=== PATIENT | female | born 1980 | race Caucasian/White ===

== ENCOUNTER 2018-10-21 06:30 | Inpatient (IN) | payer OTHER ==
[2018-10-21] MEDS ORDERED: NS / Oxytocin 40 units/1000ml 1,000 ML IV PRN (14:02)
[2018-10-21] MEDS ORDERED: Promethazine HCl 25 MG/ML VIAL IM PRN ×2 (14:02→21:17)
[2018-10-21] MEDS ORDERED: HYDROcodone/Acetaminophen 5/325 mg Tablet PO PRN ×2 (14:02)
[2018-10-21] MEDS ORDERED: Butorphanol Tartrate 1 MG/ML VIAL SLOW IVP PRN (14:02)
[2018-10-21] MEDS ORDERED: Ibuprofen 800 MG TAB PO PRN (14:02)
[2018-10-21] MEDS ORDERED: Lidocaine 1% (PF) 30 ML VIAL SC PRN (14:02)
[2018-10-21] MEDS ORDERED: Docusate 100 MG CAP PO PRN (14:02)
[2018-10-21] MEDS ORDERED: NS w/ Oxytocin 10 units 500 ML IV SCH (14:15)
[2018-10-21 15:05] VITALS: BMI 51.3
[2018-10-21 16:21] LABS: Hemoglobin 11.1 g/dL (12.0-16.0); Mean Corpuscular HGB CONC 34.2 g/dL (32.0-36.0); Mean Corpuscular Hemoglobin 27.7 pg (27.0-31.0); Mean Corpuscular Volume 80.9 fL (78.0-98.0); Mean Platelet Volume 8.2 fL (7.4-10.4); Platelet Count 225 thou/uL (130-400); RBC Distribution Width 14.6 % (11.5-14.5); Red Blood Cell (RBC) Count 4.01 mill/uL (4.20-5.40); White Blood Cell (WBC) Count 9.4 thou/uL (4.8-10.8)
[2018-10-21 17:02] LABS: HBSAg Index 0.23 S/CO (0-0.99); Hep B Surf Ag Non-Reactive S/CO (NonReactive)
[2018-10-21 17:03] LABS: Syphilis Antibody Nonreactive (Nonreactive); Syphilis Antibody Index 0.12 S/CO (<1.00 Non-Reactive)
[2018-10-21] MEDS ORDERED: Fentanyl 4 mcg/Bup 0.1% Cadd 100 ML ONE (20:08)
[2018-10-21] MEDS: Lactated Ringer's 1,000 ML IV SCH ×2 (20:34→21:51)
[2018-10-21] MEDS ORDERED: Ondansetron PF 4 MG/2 ML Vial IVP PRN (21:17)
[2018-10-21] MEDS ORDERED: Lactated Ringer's 500 ML IV PRN (21:17)
[2018-10-21] MEDS ORDERED: Acetaminophen 325 MG TAB PO PRN (21:17)
[2018-10-21] MEDS ORDERED: ePHEDrine/0.9% NaCl/PF SYRINGE 50 mg/10 ml SLOW IVP PRN (21:17)
[2018-10-21] MEDS ORDERED: Naloxone HCl 0.4 mg/ml Vial IVP PRN ×2 (21:17)
[2018-10-21] MEDS ORDERED: diphenhydrAMINE 50 MG/ML VIAL IVP PRN (21:17)
[2018-10-21] MEDS ORDERED: Eucerin (Mineral Oil/Petrolatum,White) 30 gm Jar TOP PRN (21:17)
[2018-10-21] MEDS ORDERED: Communication Order-Pharmacy FS SCH (21:30)
[2018-10-21] MEDS: Fentanyl 4 mcg/Bupivacaine 0.1% Cassette 100 ML EPIDURAL SCH (21:41)
[2018-10-22] MEDS: Ondansetron PF 4 MG/2 ML Vial IVP PRN ×2 (03:58→23:43)
[2018-10-22] MEDS ORDERED: Fentanyl 4 mcg/Bup 0.1% Cadd 100 ML ONE ×3 (04:34→18:58)
[2018-10-22] MEDS: Fentanyl 4 mcg/Bupivacaine 0.1% Cassette 100 ML EPIDURAL SCH ×2 (04:38→19:03)
[2018-10-22] MEDS: Lactated Ringer's 1,000 ML IV SCH ×3 (05:23→21:05)
[2018-10-22] MEDS: NS w/ Oxytocin 10 units 500 ML IV SCH ×2 (07:34→18:19)
[2018-10-22] MEDS: CEFAZOLIN 2 GM/50 ML BAG IVPB SCH (23:18)
[2018-10-23] MEDS ORDERED: Fentanyl 4 mcg/Bup 0.1% Cadd 100 ML ONE ×2 (01:31→08:50)
[2018-10-23] MEDS: Fentanyl 4 mcg/Bupivacaine 0.1% Cassette 100 ML EPIDURAL SCH ×2 (01:36→08:55)
[2018-10-23] MEDS: NS w/ Oxytocin 10 units 500 ML IV SCH (05:11)
[2018-10-23] MEDS: Lactated Ringer's 1,000 ML IV SCH ×3 (05:11→22:06)
[2018-10-23] MEDS: CEFAZOLIN 2 GM/50 ML BAG IVPB SCH ×3 (07:31→15:59)
--- NOTE | 2018-10-23 09:02 | PDOC.LDHP ---
Labor and Delivery H&P HPI: 38 year old with Morbid Obesity (BMI of 52.6), Grand Multiparity, Advanced Maternal Age, Chronic Hypertension, History of prior Macrosomia, now with smaller but still LGA Fetus, presents for medical induction of labor. Last clinic weight of 409.8 lbs. Largest was 10 pounds, 13 ounces, without delivery problems. Due date: 11/10/18 Grav: 7 Para: 5 Current complications: hypertension Current medications: pre-clare vitamins Previous surgical history: none Allergies/Adverse Reactions: Allergies Allergy/AdvReac Type Severity Reaction Status Date / Time No Known Allergies Allergy Verified 10/21/18 14:42 Social history: none - Physical Exam Vital signs reviewed and normal: yes General: NAD, resting Heart: RRR Lungs: CTAB Abdomen: gravid Extremeties: no edema FHT: category 1 - Vaginal Exam cm dilated: 2 Effacement: 50% Station: -3 - Assessment L&D Assessment: medically indicated induction - Plan Plan: admit to L&D
--- NOTE | 2018-10-23 09:14 | PDOC.LDPN ---
Labor & Delivery Progress Note - Subjective Subjective: comfortable - Objective Vital signs reviewed and normal: yes General: NAD, resting, breathing through contractions Uterine fundus: non tender Dilation: 6 Effacement: 90% Station: -2 FHT: category 1 AROM: clear fluid IUPC placed: yes FSE placed: yes Plan: other -: Patient has had no cervical change now for approximately 12 hours, and cervix is arrested at 6cm. From ultrasound findings, I expected this fetus to be one of her smallest, and thus CPD is not high on my differential. The patient has successfully had a 10 pound 13 ounce baby without problems. And yet, despite out best around the clock efforts to adjust her pitocin to achieve adequate MVUs , we have had little success. Pitocin has been adjusted countless times, turned off and restarted, and still we have had no cervical change in 6 hours. Patient has SCDs on, Ancef was begun shortly after 12 hours of AROM to help delay and issues with IAI given her slow progress. Finally, after 12 hours without cervical change, I feel we have given this patient every reasonable change to make cervical change and prevent unnecessary , given her associated risks of morbid obesity. I have contacted anesthesia (Dr. Ramirez) and the L&D Hospitalist (Dr. Reed) and arranged for a to start right after lunch today. In the mean time, we will DC Pitocin, to rest the uterus and hopefully improve pitocin receptor function of the the .
[2018-10-23] MEDS ORDERED: PHENYLEPHRINE-NS 100 MCG/ML 10 ML SYRINGE ONE (12:54)
[2018-10-23] MEDS ORDERED: Lidocaine 2% 10 ML INJ ONE ×2 (12:54→13:37)
[2018-10-23] MEDS ORDERED: Oxytocin 10 UNITS/ML VIAL ONE (12:54)
[2018-10-23] MEDS ORDERED: ePHEDrine/0.9% NaCl/PF SYRINGE 50 mg/10 ml ONE (12:54)
[2018-10-23] MEDS ORDERED: Ondansetron PF 4 MG/2 ML Vial ONE ×2 (12:54→16:23)
[2018-10-23] MEDS ORDERED: Bicitra 30 ML UDCUP ONE (12:55)
[2018-10-23] MEDS ORDERED: Lidocaine 2% MPF 10 ML AMP (For Epidural Use) ONE (13:45)
[2018-10-23] MEDS ORDERED: Morphine PF 1 MG/ML SYR ONE (13:58)
[2018-10-23] MEDS: Ketorolac Tromethamine 30 MG/ML VIAL IVP PRN ×2 (14:10→18:55)
--- NOTE | 2018-10-23 14:25 | OP ---
DATE OF PROCEDURE: 10/23/2018 TIME OF INTERVENTION: 1:56 p.m. LOCATION: Labor and delivery operating room. INDICATIONS: In brief, I was asked to assist Dr. Ramos, who is the patient's primary physician, on this primary . Dr. Raegan Bobby with the [facility] was also present. I was asked to assist as the patient's BMI was greater than 40 and I was to serve as an in room backup in case delivery was difficult. DESCRIPTION OF PROCEDURE: I scrubbed and gowned for the case and remained at the surgery table bedside. Dr. Bobby and Dr. Ramos successfully performed the delivery with hysterotomy creation and closure by them. The baby was delivered in the cephalic presentation without complication. I did not actually help in the surgical procedure itself, but only was in the room in case I was needed. I scrubbed out just after uterine closure. Because I did not physically assist with the surgery, I would not list myself as one of the assistants. I will simply be referenced as an in room additional physician as a standby. For full details, please turn to the operative dictation by Dr. Ramos. Job ID: [id number]
[2018-10-23] MEDS ORDERED: diphenhydrAMINE 50 MG/ML VIAL IVP PRN (14:54)
[2018-10-23] MEDS ORDERED: diphenhydrAMINE 50 MG/ML VIAL IM PRN (14:54)
[2018-10-23] MEDS ORDERED: Ondansetron PF 4 MG/2 ML Vial IVP PRN (14:54)
[2018-10-23] MEDS ORDERED: Naloxone HCl 0.4 mg/ml Vial IV PRN (14:54)
[2018-10-23] MEDS ORDERED: diphenhydrAMINE 25 MG CAP PO PRN (14:54)
[2018-10-23] MEDS ORDERED: Promethazine HCl 25 MG/ML VIAL IM PRN (14:54)
[2018-10-23] MEDS ORDERED: HYDROmorphone 10 mg/100 ml CADD IVPB PRN (14:54)
[2018-10-23] MEDS ORDERED: Zolpidem Tartrate 5 MG TAB PO PRN (14:54)
[2018-10-23] MEDS ORDERED: Ondansetron HCl/PF 4 MG/2 ML Vial IVP PRN (14:56)
[2018-10-23] MEDS ORDERED: Meperidine HCl/PF 25 MG/ML VIAL SLOW IVP PRN (14:56)
[2018-10-23] MEDS ORDERED: HYDROmorphone 2 MG/ML VIAL SLOW IVP PRN (14:56)
[2018-10-23] MEDS ORDERED: L&D-Morphine 4 MG/ML VIAL SLOW IVP PRN (14:56)
[2018-10-23] MEDS ORDERED: Ketorolac Tromethamine 30 MG/ML VIAL ONE (14:58)
[2018-10-23] MEDS ORDERED: Ketorolac Tromethamine 30 MG/ML VIAL IVP SCH (15:00)
[2018-10-23] MEDS ORDERED: Communication Order-Pharmacy FS SCH (15:00)
[2018-10-23] MEDS ORDERED: Meperidine HCl/PF 25 MG/ML VIAL ONE (15:54)
[2018-10-23] MEDS ORDERED: Lidocaine 1% PF 5 ML VIAL ONE (16:23)
[2018-10-23] MEDS ORDERED: HYDROcodone/Acetaminophen 5/325 mg Tablet PO PRN ×2 (16:29)
[2018-10-23] MEDS ORDERED: Bisacodyl 10 MG SUPP PR PRN (16:29)
[2018-10-23] MEDS: Docusate Calcium (SURFAK) 240 MG CAP PO SCH (22:05)
[2018-10-23] MEDS: Simethicone Chewable 80 MG TAB PO PRN (22:06)
[2018-10-23] MEDS: Enoxaparin Sodium 40 MG/0.4 ML SYRINGE SC SCH (22:06)
[2018-10-23] MEDS: Ibuprofen 800 MG TAB PO SCH (23:14)
[2018-10-23] MEDS: Ferrous Sulfate 325 MG TAB PO SCH (23:14)
[2018-10-24] MEDS: Ibuprofen 800 MG TAB PO SCH ×3 (06:20→21:51)
[2018-10-24 06:36] LABS: Hemoglobin 9.6 g/dL (12.0-16.0); Mean Corpuscular HGB CONC 33.8 g/dL (32.0-36.0); Mean Corpuscular Hemoglobin 27.9 pg (27.0-31.0); Mean Corpuscular Volume 82.5 fL (78.0-98.0); Platelet Count 183 thou/uL (130-400); RBC Distribution Width 14.9 % (11.5-14.5); Red Blood Cell (RBC) Count 3.43 mill/uL (4.20-5.40); White Blood Cell (WBC) Count 8.8 thou/uL (4.8-10.8)
[2018-10-24 06:58] LABS: ALT (SGPT) 8 U/L (8-55); AST (SGOT) 15 U/L (5-34); Albumin 2.5 g/dL (3.5-5.0); Alkaline Phosphatase 84 U/L (40-150); Anion Gap 14 mmol/L (10-20); BUN (Urea Nitrogen) 5 mg/dL (7.0-18.7); Bilirubin, Total 0.8 mg/dL (0.2-1.2); Calc. Creatinine Clearance 387 mL/min (70-130); Calcium 7.8 mg/dL (7.8-10.44); Carbon Dioxide 19 mmol/L (22-29); Chloride 105 mmol/L (98-107); Estimated GFR-MDRD Greater than 90; Globulin 2.5 g/dL (2.4-3.5); Glucose 82 mg/dL (70-105); Potassium 3.7 mmol/L (3.5-5.1); Sodium 134 mmol/L (136-145)
[2018-10-24] MEDS: Lactated Ringer's 1,000 ML IV SCH (08:19)
[2018-10-24] MEDS: Docusate Calcium (SURFAK) 240 MG CAP PO SCH ×2 (08:20→21:51)
[2018-10-24] MEDS: Prenatal Vitamin 1 TAB PO SCH (08:20)
[2018-10-24] MEDS: Simethicone Chewable 80 MG TAB PO PRN ×2 (08:20→21:51)
[2018-10-24] MEDS: Ketorolac Tromethamine 30 MG/ML VIAL IVP PRN (08:20)
[2018-10-24] MEDS: Ferrous Sulfate 325 MG TAB PO SCH ×2 (08:21→21:51)
[2018-10-24] MEDS ORDERED: Adacel (T-DAP) 0.5 ML SYRINGE IM ONE (09:00)
[2018-10-24] MEDS: HYDROcodone/Acetaminophen 5/325 mg Tablet PO PRN ×3 (11:26→21:50)
--- NOTE | 2018-10-24 17:06 | PDOC.PP ---
Post Progress Note Post Day #: 1 PO intake tolerated: yes Flatus: no Ambulation: yes Vital Signs (12 hours) Temp Pulse Resp BP Pulse Ox 10/24/18 11:51 98.0 F 90 20 117/65 10/24/18 08:10 97 10/24/18 07:59 98.3 F 89 20 122/68 97 10/24/18 05:00 98.6 F 88 16 121/68 Weight Weight 400 lb Result Diagrams: 10/24/18 06:15 10/24/18 06:15 Additional Labs: Post Labs Blood Type A POSITIVE 10/21/18 16:09 Hep Bs Antigen Non-Reactive S/CO (NonReactive) 10/21/18 16:09
[2018-10-24] MEDS: Enoxaparin Sodium 40 MG/0.4 ML SYRINGE SC SCH (21:52)
[2018-10-25] MEDS: HYDROcodone/Acetaminophen 5/325 mg Tablet PO PRN ×3 (05:51→21:30)
[2018-10-25] MEDS: Ibuprofen 800 MG TAB PO SCH ×3 (05:51→22:56)
[2018-10-25] MEDS: Ferrous Sulfate 325 MG TAB PO SCH ×2 (09:49→21:29)
[2018-10-25] MEDS: Prenatal Vitamin 1 TAB PO SCH (09:49)
[2018-10-25] MEDS: Docusate Calcium (SURFAK) 240 MG CAP PO SCH ×2 (09:49→21:29)
[2018-10-25] MEDS: Simethicone Chewable 80 MG TAB PO PRN (09:51)
[2018-10-25] MEDS ORDERED: Bupivacaine/Epinephrine 0.25% 30 ML VIAL ONE (21:32)
[2018-10-25] MEDS: Enoxaparin Sodium 40 MG/0.4 ML SYRINGE SC SCH (22:56)
[2018-10-26] MEDS: Ibuprofen 800 MG TAB PO SCH ×2 (05:23→13:02)
[2018-10-26 09:32] VITALS: BP 127/72; TEMP 98.2
[2018-10-26] MEDS: Prenatal Vitamin 1 TAB PO SCH (09:52)
[2018-10-26] MEDS: Docusate Calcium (SURFAK) 240 MG CAP PO SCH (09:52)
[2018-10-26] MEDS: Ferrous Sulfate 325 MG TAB PO SCH (09:52)
[2018-10-26] MEDS: HYDROcodone/Acetaminophen 5/325 mg Tablet PO PRN (11:46)
== END 2018-10-26 14:20 | disposition home or self-care (01) | DRG 788 ==
LOC: L&D 13:48 → 3SW 10-23 16:44
PROVIDERS: ADMIT Obstetrics & Gynecology; ATTEND Obstetrics & Gynecology
PROC: 10D00Z1 Extraction of Products of Conception, Low, Open Approach (ICD-10-PCS; principal; 2018-10-23)
PROC: 10907ZC Drainage of Amniotic Fluid, Therapeutic from Products of Conception, Via Natural or Artificial Opening (ICD-10-PCS; 2018-10-23)
PROC: 3E033VJ Introduction of Other Hormone into Peripheral Vein, Percutaneous Approach (ICD-10-PCS; 2018-10-23)
PROC: 10H07YZ Insertion of Other Device into Products of Conception, Via Natural or Artificial Opening (ICD-10-PCS; 2018-10-23)
PROC: 4A1H74Z Monitoring of Products of Conception, Cardiac Electrical Activity, Via Natural or Artificial Opening (ICD-10-PCS; 2018-10-23)
DX: O16.4 Unspecified maternal hypertension, complicating childbirth (principal); O99.214 Obesity complicating childbirth; E66.01 Morbid (severe) obesity due to excess calories; O36.63X0 Maternal care for excessive fetal growth, third trimester, not applicable or unspecified; Z3A.37 37 weeks gestation of pregnancy; Z37.0 Single live birth; Z23 Encounter for immunization
CPT/HCPCS: 36415; 51702; 76815; 80053; 85027; 86780; 86850; 86900; 86901; 87340; 90471; 90686; 90715; G0008; J1650; J1885; J2001; J2175; J2274; J2405; J2590